=== PATIENT | female | born 1935 | race Caucasian/White ===

== ENCOUNTER 2018-12-21 12:50 | Inpatient (IN) | payer OTHER ==
[~2018-12-21] VITALS: Ht 152.4 cm; Wt 62.1 kg
[~2018-12-21 12:50] MED LIST: ALBU90I INH; ALBU90OI6 INH; ALPR.5 PO; AMOX500 PO; ASCO1ER; ATEN50; AZIT250 PO; CALTRATE; CARV25 PO; CARV3.125 PO; CILO50; CYAN500 PO; DEXGUASY PO; DOXE10 PO; Dulcolax5 MG PO; FISH1000 PO; HYDRA25; HYDRA25 PO; HYDRA50 PO; LORA.5 PO; MAGNESIUM; MAGOXI400 PO; MULVITMINF PO; NITR100CA PO; POTASSIUM; PROM25 PO; SERT25 PO; SERT50; SIMV20; [UNRECOGNIZED DRUG - OTHER]
--- NOTE | 2018-12-21 17:25 | NUR ---
ASSUMED CARE OF PT- ADMIT NOTE. CALLED DR AGUILAR, PT BP ELEVATED 175/61, LOWER THAN PREVIOUS READING. DR SANCHES OK TO HANG NS AT 125ML/HR ORDERED.
[2018-12-21 17:47] LABS: CHOL/HDL RATIO 4.4; Cholesterol 281 mg/dL (50-200); HDL Cholesterol 64 mg/dL (>39); Low Density Lipoprotein Chol 191 mg/dL (0-110); Triglycerides 130 mg/dL (30-160); Very Low Density Lipoprot Chol 26 mg/dL (6-32)
--- NOTE | 2018-12-21 19:28 | NUR ---
SHIFT SUMMARY- PT ALERT AND ORIENTED, POOR HISTORIAN, ALANNA. PT IS A 1PA WITH TRANSFERS FOR SAFETY. PT TO REMAIN NPO FOR GI REST R/T PANCREATITIS LIPASE [id number] PER H&P. PT STATED ABDOMINAL PAIN BUT WANTED STAFF TO LEAVE HER ALONE SHE HAD A PHONE CALL. PT CALLED FOR BATHROOM ASSISTANCE AND DECLINED TO GO WHEN THE AID CAME TO HELP HER SHE WAS STILL ON THE PHONE. NIGHT RN AWARE OF THE PT REQUEST FOR PAIN MEDICINE AND SUBSEQUENT DENIAL R/T PHONE CALL. SHE WILL ASSESS AND MEDICATE PER EMAR. PT HAS IVF RUNNING AT 125ML PER HR; CALLED DR AGUILAR AND SPOKE TO HER PRIOR TO STARTING FLUIDS D/T PT HIGH BP. PER DR AGUILAR OK TO RUN THE FLUIDS AT THE ORDERED RATE. PT HAS IV PAIN MEDICATION WELL PRN IV HYDRALIZINE.
[2018-12-22 04:54] LABS: BASOPHILS ABSOLUTE AUTO 0.03 K/mm3 (0.00-0.23); BASOPHILS PERCENT AUTO 0 % (0-2); EOSINOPHILS ABSOLUTE AUTO 0.12 K/mm3 (0.00-0.68); EOSINOPHILS PERCENT AUTO 2 % (0-6); Hematocrit 43.4 % (33.0-51.0); Hemoglobin 14.1 g/dL (11.5-16.0); IMMATURE GRAN ABSOLUTE AUTO 0.03 K/mm3 (0.00-0.10); IMMATURE GRAN PERCENT AUTO 0 % (0-1); LYMPHOCYTES ABSOLUTE AUTO 2.21 K/mm3 (0.84-5.20); LYMPHOCYTES PERCENT AUTO 28 % (21-46); MONOCYTES ABSOLUTE AUTO 0.51 K/mm3 (0.16-1.47); MONOCYTES PERCENT AUTO 6 % (4-13); Mean Corpuscular HGB 31.3 pg (26.0-34.0); Mean Corpuscular HGB Conc 32.5 g/dL (31.5-36.5); Mean Corpuscular Volume 96 fL (80-100); NEUTROPHILS ABSOLUTE AUTO 5.08 K/mm3 (1.96-9.15); NEUTROPHILS PERCENT AUTO 64 % (41-73); Platelet Count 167 K/mm3 (150-400); RDW Coefficient Variation 13.9 % (11.7-14.2); RDW Standard Deviation 48.9 fL (35.1-46.3); Red Blood Cell Count 4.51 M/mm3 (3.80-5.20); White Blood Cell Count 7.98 K/mm3 (4.00-11.30)
[2018-12-22 05:17] LABS: Alanine Aminotransfer (ALT/SGP 30 U/L (12-78); Albumin, Blood 3.2 g/dL (3.4-5.0); Albumin/Globulin Ratio 1.1 (0.8-1.8); Alk Phos 88 U/L (50-136); Anion Gap 5 mmol/L (6-16); Aspartate Aminotrans (AST/SGOT 24 U/L (12-37); Bilirubin, Total 0.5 mg/dL (0.1-1.0); Blood Urea Nitrogen 11 mg/dL (8-24); Bun/Creatinine Ratio 14.6 (12.0-20.0); CO2, Blood 25 mmol/L (21-32); Calcium, Blood 8.6 mg/dL (8.5-10.1); Chloride, Blood 112 mmol/L (98-108); Creatinine, Blood 0.75 mg/dL (0.40-1.00); Globulin, Blood 2.8 g/dL (2.2-4.0); Glomerular Filtration Rate >60 (60-); Glucose, Blood 85 mg/dL (70-99); Potassium, Blood 3.9 mmol/L (3.5-5.5); Sodium, Blood 142 mmol/L (136-145)
--- NOTE | 2018-12-22 06:30 | NUR ---
SHIFT SUMMARY PT A/O NO C/O PAIN. SBA TO SBC AND BA. SHE WAS ABLE TO SLEEP T/O NIGHT. DOESN'T WANT TO BE NPO. CALL LIGHT IN REACH.
--- NOTE | 2018-12-22 09:01 | NUR ---
ASSUMED CARE OF PT- BEDSIDE REPORT COMPLETED WITH NIGHT RN MONA. PT SLEEPING AT CHANGE OF SHIFT. PT HAS HAD NO C/O PAIN T/O THE NIGHT ALTHOUGH LIPASE INCREASED TO [id number] FROM THE GREATER THAN 3750. PT REMAINS ASYMPTOMATIC AT THIS TIME.
--- NOTE | 2018-12-22 14:30 | NUR ---
PT HAS HAD PUDDING AND ENSURE AND MOR PUDDING. PT STILL ASYMPTOMATIC, NO PAIN NO NAUSEA, VITALS STABLE, DIET TO BE ADVANCED TO SOFT BITE SIZED, PT MAY DISHARGE HOME THIS EVENING IF STILL ASYMPTOMATIC. PT PUSHING TO GO HOME.
[2018-12-22] MEDS ORDERED: ACET325 PO (17:38)
[2018-12-22] MEDS ORDERED: OMEPRAZOLE20 MG PO (17:38)
[2018-12-22] MEDS ORDERED: ONDA4ODT PO (17:38)
--- NOTE | 2018-12-22 18:31 | NUR ---
DISCHARGE NOTE- PT WAS GIVEN VERBAL AND WRITTEN DISCHARGE INSTRUCTIONS AND ACKNOWLEDGED UNDERSTANDING OF THEM. NO FURTHER QUESTIONS AT THE TIME OF DISCHARGE, PT ESCRTED OUT VIA W/C BY THE RAILROAD COOK.
== END 2018-12-22 18:20 | disposition home or self-care (01) | DRG 440 ==
LOC: ER 12:50 → MEDS 15:46
PROVIDERS: ADMIT Internal Medicine
DX: K85.90 Acute pancreatitis without necrosis or infection, unspecified (principal); J44.9 Chronic obstructive pulmonary disease, unspecified; I10 Essential (primary) hypertension; F41.9 Anxiety disorder, unspecified; Z88.6 Allergy status to analgesic agent; Z88.5 Allergy status to narcotic agent; Z88.0 Allergy status to penicillin; Z88.8 Allergy status to other drugs, medicaments and biological substances; Z87.891 Personal history of nicotine dependence
CPT/HCPCS: 36415; 74177; 80053; 80061; 83690; 85025; C9113; J0360; J1650; J2270; J2405; J7030; J7120; Q9967

== ENCOUNTER 2020-09-24 14:16 | Observation (INO) | payer OTHER ==
[~2020-09-24] VITALS: Ht 162.6 cm; Wt 54.4 kg
[~2020-09-24 14:16] MED LIST changes: +ACET325 PO; +OMEPRAZOLE20 MG PO; +ONDA4ODT PO
[2020-09-24 15:00] LABS: BASOPHILS ABSOLUTE AUTO 0.03 K/mm3 (0.00-0.23); BASOPHILS PERCENT AUTO 0 % (0-2); EOSINOPHILS PERCENT AUTO 1 % (0-6); Hematocrit 50.6 % (33.0-51.0); Hemoglobin 16.8 g/dL (11.5-16.0); IMMATURE GRAN ABSOLUTE AUTO 0.05 K/mm3 (0.00-0.10); IMMATURE GRAN PERCENT AUTO 1 % (0-1); LYMPHOCYTES ABSOLUTE AUTO 1.97 K/mm3 (0.84-5.20); LYMPHOCYTES PERCENT AUTO 19 % (21-46); MONOCYTES ABSOLUTE AUTO 0.43 K/mm3 (0.16-1.47); MONOCYTES PERCENT AUTO 4 % (4-13); Mean Corpuscular HGB 30.8 pg (26.0-34.0); Mean Corpuscular HGB Conc 33.2 g/dL (31.5-36.5); Mean Corpuscular Volume 93 fL (80-100); Mean Platelet Volume 10.2 fL (9.1-12.4); NEUTROPHILS ABSOLUTE AUTO 8.08 K/mm3 (1.96-9.15); NEUTROPHILS PERCENT AUTO 76 % (41-73); Platelet Count 184 K/mm3 (150-400); RDW Coefficient Variation 13.5 % (11.7-14.2); RDW Standard Deviation 45.8 fL (35.1-46.3); Red Blood Cell Count 5.45 M/mm3 (3.80-5.20); White Blood Cell Count 10.66 K/mm3 (4.00-11.30)
[2020-09-24 15:20] LABS: Alanine Aminotransfer (ALT/SGP 28 U/L (12-78); Albumin/Globulin Ratio 1.1 (0.8-1.8); Alk Phos 109 U/L (50-136); Anion Gap 5 mmol/L (6-16); Aspartate Aminotrans (AST/SGOT 28 U/L (12-37); Bilirubin, Total 0.9 mg/dL (0.1-1.0); Blood Urea Nitrogen 14 mg/dL (8-24); Bun/Creatinine Ratio 18.2 (12.0-20.0); CO2, Blood 28 mmol/L (21-32); Calcium, Blood 9.6 mg/dL (8.5-10.1); Chloride, Blood 105 mmol/L (98-108); Creatinine, Blood 0.77 mg/dL (0.40-1.00); Globulin, Blood 3.6 g/dL (2.2-4.0); Glomerular Filtration Rate >60 (60-); Glucose, Blood 82 mg/dL (70-99); Potassium, Blood 4.1 mmol/L (3.5-5.5); Sodium, Blood 138 mmol/L (136-145); Total Protein, Blood 7.6 g/dL (6.4-8.2); Troponin I <0.015 ng/mL (0.000-0.040)
--- NOTE | 2020-09-24 18:26 | NUR ---
PT CAME IN FROM ED FOR PANCREATITIS; PT DENIES NAUSEA AND VOMITING; AOX4; CALLS APPROPRIATELY. PT STATED SHE HAS GENERALIZED ABD PAIN- 08/15 BUT SHE REFUSED FOR ANY PAIN MEDS AND STATED SHE IS TOLERATING IT. PT CAME IN WITH HIGH BP OF SBP 190S- CALLED THE DR AND RECEIVED AN ORDER FOR DAILY NORVASC STARTING NOW; WILL RECHECK BP AND LET NIGHT RN KNOWS. PT IS NOW ON CLEAR LIQUID DIET. PT LIVES WITH SON AND SON AWARE SHE IS HERE. PT SUPERVISION TO THE [place]. RUNNING NS 100. PT ORIENTED IN THE ROOM AND CALL LIGHT WITHIN REACH
--- NOTE | 2020-09-25 04:57 | NUR ---
SHIFT SUMMARY PT HAD AN UNEVENTFUL NIGHT. CONTINUED TO BE HYPERTENSIVE BUT IMPROVED TO SYSTOLIC 160'S FROM 180'S-190'S. MAY BE RELATED TO PT'S DISCOMFORT. PT REPORTING 7/10 GENERALIZED ABD PAIN. PT DECLINES PAIN MEDICATION. DENIES ANY NAUSEA. SLEPT OFF AND ON THROUGHOUT THE NIGHT. OTHERWISE NO ACUTE CHANGES. WILL CONTINUE TO MONITOR.
[2020-09-25 05:46] LABS: BASOPHILS ABSOLUTE AUTO 0.02 K/mm3 (0.00-0.23); BASOPHILS PERCENT AUTO 0 % (0-2); EOSINOPHILS ABSOLUTE AUTO 0.07 K/mm3 (0.00-0.68); EOSINOPHILS PERCENT AUTO 1 % (0-6); Hematocrit 43.2 % (33.0-51.0); Hemoglobin 14.4 g/dL (11.5-16.0); IMMATURE GRAN ABSOLUTE AUTO 0.02 K/mm3 (0.00-0.10); IMMATURE GRAN PERCENT AUTO 0 % (0-1); LYMPHOCYTES ABSOLUTE AUTO 1.49 K/mm3 (0.84-5.20); LYMPHOCYTES PERCENT AUTO 18 % (21-46); MONOCYTES PERCENT AUTO 6 % (4-13); Mean Corpuscular HGB 31.2 pg (26.0-34.0); Mean Corpuscular HGB Conc 33.3 g/dL (31.5-36.5); Mean Corpuscular Volume 94 fL (80-100); Mean Platelet Volume 10.2 fL (9.1-12.4); NEUTROPHILS ABSOLUTE AUTO 6.37 K/mm3 (1.96-9.15); NEUTROPHILS PERCENT AUTO 75 % (41-73); Platelet Count 162 K/mm3 (150-400); RDW Coefficient Variation 13.7 % (11.7-14.2); RDW Standard Deviation 46.7 fL (35.1-46.3); Red Blood Cell Count 4.62 M/mm3 (3.80-5.20); White Blood Cell Count 8.47 K/mm3 (4.00-11.30)
[2020-09-25 06:38] LABS: Alanine Aminotransfer (ALT/SGP 19 U/L (12-78); Albumin, Blood 3.1 g/dL (3.4-5.0); Albumin/Globulin Ratio 1.1 (0.8-1.8); Alk Phos 87 U/L (50-136); Anion Gap 5 mmol/L (6-16); Aspartate Aminotrans (AST/SGOT 18 U/L (12-37); Bilirubin, Total 0.6 mg/dL (0.1-1.0); Blood Urea Nitrogen 9 mg/dL (8-24); CO2, Blood 24 mmol/L (21-32); Calcium, Blood 8.7 mg/dL (8.5-10.1); Chloride, Blood 110 mmol/L (98-108); Creatinine, Blood 0.69 mg/dL (0.40-1.00); Globulin, Blood 2.9 g/dL (2.2-4.0); Glomerular Filtration Rate >60 (60-); Glucose, Blood 85 mg/dL (70-99); Magnesium, Blood 2.4 mg/dL (1.6-2.4); Potassium, Blood 4.2 mmol/L (3.5-5.5); Sodium, Blood 139 mmol/L (136-145)
[2020-09-25] MEDS ORDERED: FAMO20 PO (09:46)
[2020-09-25] MEDS ORDERED: AMLO5 PO (09:46)
--- NOTE | 2020-09-25 11:29 | NUR ---
DISCHARGE NOTE PT IS AOX4. PT IV REMOVED BY THIS RN PER DOCUMENTATION. DC INSTRUCTIONS AND MEDICATIONS REVIEWED WITH PT BY THIS RN AND PT VERBALIZED UNDERSTANDING. PT DRESSED SELF IN HOME CLOTHING. PT BELONGINGS GATHERED. PT ASSISTED INTO WHEELCHAIR BY REBRANDER. PT WHEELED OFF UNIT TO PRIVATE VEHICLE FOR DC.
== END 2020-09-25 11:25 | disposition home or self-care (01) ==
LOC: ER 14:16 → MEDS 14:17 → ENPENDDIS 09-25 09:28 → MEDS 09-25 11:25
PROVIDERS: Physician Assistant; ADMIT Internal Medicine
DX: K85.90 Acute pancreatitis without necrosis or infection, unspecified (principal); I10 Essential (primary) hypertension; J44.9 Chronic obstructive pulmonary disease, unspecified; Z87.891 Personal history of nicotine dependence
CPT/HCPCS: 36415; 71046; 74177; 80053; 83690; 83735; 84484; 85025; 93005; 93010; 96372; 99285-25; A9270; G0378; J1650; J7030; J7120; Q9967